=== PATIENT | male | born 1950 | race Caucasian/White ===

== ENCOUNTER → 2024-05-11 09:02 | Outpatient (REF) | payer MEDICARE, SELFPAY | LOC: RCS 09:02 | PROVIDERS: ATTENDING PHYSICIAN Physician Assistant Medical; FAMILY PHYSICIAN Internal Medicine | DX: I10 Essential (primary) hypertension (principal) | CPT/HCPCS: 93306 ==

== ENCOUNTER → 2024-12-24 12:42 | Outpatient (REF) | payer MEDICARE, SELFPAY | LOC: HWRAD 12:42 | PROVIDERS: ATTENDING PHYSICIAN Physician Assistant Medical | DX: R10.9 Unspecified abdominal pain (principal) | CPT/HCPCS: 76770 ==

== ENCOUNTER 2025-09-28 08:39 | Emergency (ER) | payer MEDICARE, SELFPAY ==
[2025-09-28 08:51] VITALS: BP 121/62
--- NOTE | 2025-09-28 09:37 | ED.GENMED ---
History of Present Illness
General
Chief Complaint: Flank Pain
Source: patient
Exam Limitations: none
Time Seen by Provider: 09/28/25 09:20
Nursing documentation reviewed up to this point in time: agreed with
History of Present Illness
History of Present Illness:
Patient is a 75-year-old male with history hypertension, hyperlipidemia, factor V Leiden on Eliquis who presents to the emergency department with right flank pain. Patient states he began with a dull pain in his right back 2 days ago. Since that
time, he has had waves of sharp pain in his right flank radiating into his right abdomen. He also had dark (brown/red) urine on Friday and Friday. He was seen by his primary care provider yesterday where a urinalysis performed in office revealed
hematuria.
He states that flank discomfort became acutely worse yesterday around 6 PM persisting until this morning. He has experienced a few episodes of vomiting. At this time, he states pain has dissipated significantly and is currently at 2/10 in severity.
Patient denies any fever or chills. No dysuria. No chest pain or shortness of breath.
He does have a past history of kidney stones. He follows with Dr. Lea.
Past History
Past History
ED Past Medical History: None
ED Past Surgical History: Orthopedic
Social History
Tobacco: Non-smoker
Alcohol: None
Drug: None
Review of Systems
Review of Systems
Allergies reviewed?: Yes
All Other Systems: ROS reviewed and negative except as documented in HPI and ROS
Phy Exam
Physical Exam
Physical Exam:
Vitals: Patient's vital signs are stable. Afebrile
General: Patient is well appearing, no acute distress
Skin: Warm and dry, no rashes or lesions
Eyes: Sclera nonicteric.
Throat: Protecting airway
Neck: Normal ROM, no cervical spine tenderness, no meningismus
Cardiac: Regular rate and rhythm, no murmurs.
Pulm: Normal respiratory effort, no wheezes, rales, rhonchi heard on exam
Abdomen: Abdomen soft. Very mild tenderness in right mid abdomen. No rebound or guarding. No CVA tenderness. No rash
Extremities: No evidence of cyanosis or edema
Neuro: AAOx3. Grossly intact.
Psychiatric: Normal affect.
Course
Orders/Labs/Results
Orders:
Orders
09/28/25 09:33
Abdomen/Pelvis wo Contrast CT [CT Abd/pelvis Wo Iv Cont] Urgent
Comment:
Reason For Exam: Right flank pain
0.9% Sodium Chloride 1000 ml [Nss] 1,000 ml IV BOLUS
09/28/25 09:39
Complete Blood Count/With Diff Urgent
Comprehensive Metabolic Panel Urgent
Urinalysis Reflex To Culture Urgent
Date Specimen was Collected: 09/28/25
Time Specimen was Collected: 09:38
Urine Microscopic Reflex Cult Urgent
09/28/25 11:02
Potassium Chloride [KCl] 40 meq PO NOW STA
09/28/25 11:10
HYDROmorphone [Dilaudid] 0.5 mg IV NOW STA
09/28/25 11:49
Add On- LAB Urgent
Tests Added?: urine culture
Abnormal Lab Results
09/28/25
09:39
WBC 12.0 H 10^3/uL
(4.8-10.8)
MPV 10.7 H fL
(7.4-10.4)
Abs Immat Gran (auto) 0.1 H 10^3/uL
(0-0.05)
Absolute Neuts (auto) 10.4 H 10^3/uL
(1.4-6.5)
Absolute Lymphs (auto) 0.8 L 10^3/uL
(1.2-3.4)
Absolute Monos (auto) 0.7 H 10^3/uL
(0.1-0.6)
Neutrophils % 87.0 H %
(42.2-75.2)
Lymphocytes % 6.3 L %
(20.5-51.1)
Sodium 134 L mmol/L
(135-145)
Potassium 3.2 L mmol/L
(3.5-5.1)
Chloride 97 L mmol/L
(98-107)
BUN 32 H mg/dl
(9-20)
Creatinine 1.4 H mg/dL
(0.7-1.3)
Glucose 149 H mg/dl
(70-99)
Urine Ketones 2+ A
(Negative)
Ur Occult Blood Reflex 4+ A
(Negative)
Urine RBC 30-40 A /HPF
(0-2)
Urine Bacteria (Reflex) Few A
(Negative)
Urine Glucose 3+ A
(Negative)
Urine Albumin (Reflex) 1+ A
(Neg - Trace)
09/28/25 09:39
09/28/25 09:39
Vital Signs
Initial and Last Documented VS:
Initial Vital Signs
Temp Pulse Resp BP Pulse Ox
98.0 F 74 16 121/62 98
09/28/25 08:51 09/28/25 08:51 09/28/25 08:51 09/28/25 08:51 09/28/25 08:51
Last Documented Vital Signs
Temp Pulse Resp BP Pulse Ox
98.0 F 74 16 121/62 98
09/28/25 08:51 09/28/25 08:51 09/28/25 08:51 09/28/25 08:51 09/28/25 09:37
MDM/Problems Addressed
Differential Diagnosis Includes:
Not limited to: Renal colic, pyelonephritis, cystitis, appendicitis, biliary colic, muscular strain/spasm, etc.
MDM/Problems Addressed:
75-year-old male with 2 days of right flank pain and hematuria. No fevers or dysuria. No chest pain or shortness of breath. History of past kidney stones. Vitals as above. On exam, patient appears no distress. Cardio/pulmonary assessment
unremarkable. Abdomen is soft with very mild tenderness in right mid abdomen. No rebound or guarding. No CVA tenderness. No rash or ecchymoses. Differential as above. Clinical picture most consistent with renal colic. Other differentials
would include cystitis, pyelonephritis, appendicitis, muscular strain. Less likely PE as patient is anticoagulated on Eliquis without any shortness of breath or abnormal vital signs.
ED plan: Labs, urinalysis, noncontrast CT scan abdomen/pelvis. Will give IV fluids and reassess. Patient declines any analgesia at this time.
Update: labs reveal mild leukocytosis - suspect reactive. Chemistry shows mild hypokalemia and FER w/ creatinine of 1.4. UA shows many RBCs without evidence of acute infection. Urine culture sent. CT shows 5mm stone in right mid ureter w/ mild
hydro. Patient has received one dose of IV pain medication and symptoms are improved. Given patient is afebrile without evidence of acute UTI- feel patient is appropriate for trial of stone passage at home. Discussed w/ urology tong carrier who agrees
with plan. Patient was given 1L IVF. Recommended close outpatient f/u with urology next week for repeat labs to ensure kidney function returns to normal. He already has prescription for flomax. Return precautions discussed.
Chronic conditions affecting care:
History of kidney stones
Acute Exacerbation and/or Progression of Chronic Illness:
Right mid ureteal calculus
*Radiology
Radiology exam reviewed: radiology read reviewed
*Pulse Oximetry
SaO2: 98
Oxygen Mode of Delivery: Room air
Patient hypoxic: no
*EKG
Interpreted by ED Provider?: NA
*Change Manager Interpretation
Rate: Change Manager- N/A
*Critical Care Note
Total Time (30-74mins, 75-104mins- exclusive of procedures): Not Applicable
Patient Management
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
ED Attending Note
-
Portions of this chart may have been created with voice recognition software.� Occasional wrong word or��sound alike� substitutions may have occurred due to the inherent limitations of voice recognition software.
Discharge Plan
Departure
Patient Disposition: Home (Routine Discharge)
Date of Disposition: 09/28/25
Time of Disposition: 12:11
Patient with high blood pressure during this ER visit?: Yes
Condition: Good
Discharge Problem:
Right ureteral stone
Instructions: Kidney Stones (DC)
Prescriptions:
New
oxycodone 5 mg tablet
5 mg PO Q8H PRN (Reason: Pain) Qty: 7 0RF
No Action
apixaban [Eliquis] 5 MG tablet
5 mg PO BID Qty: 60 0RF
Referrals:
Keith Tello MD [Family Provider, Internal Medicine]
Bruno Lea MD [Active, Urology] - Follow up in 1 week
Activity Restrictions/Additional Instructions:
RETURN TO THE EMERGENCY DEPARTMENT WITH ANY FEVER, CHILLS, SEVERE ABDOMINAL OR BACK PAIN, INABILITY TO URINATE, WORSENING IN CURRENT SYMPTOMS, OR ANY OTHER CONCERNS
- As discussed�your CT scan did reveal a 5 mm stone in your mid right ureter. This is likely the cause of your symptoms. You were also noted to have a suspected cyst on the right kidney�you should have an outpatient kidney ultrasound performed for
better evaluation of this.
- To treat pain, a prescription for oxycodone has been sent to your pharmacy. This may cause drowsiness and you should not take prior to driving. You can also take Tylenol as needed. You should avoid any NSAIDs as you are on Eliquis. Continue to
stay very well-hydrated. Take Flomax daily as prescribed by your primary care.
- Your kidney function was slightly elevated today in the emergency department. Please have this repeated in 1 week to ensure trending down. Your potassium level was also low�you were given a dose of oral potassium.
- Follow-up with urology next week for further evaluation and management.
Monitor your symptoms closely and return to the emergency department with any acute worsening/new symptoms or any signs of infection.
Interventions
Interventions:
*Risk Screen - Suicide Last Done: 09/28/25 08:51
*General Assessment Last Done: 09/28/25 08:51
*Neglect/Abuse Screening Last Done: 09/28/25 08:51
*ED- Fall Risk Assessment Last Done: 09/28/25 12:18
*ED COVID-19 Vaccine History Last Done: 09/28/25 12:18
*ED Influenza Vaccine History Last Done: 09/28/25 12:18
*Nursing Disposition Last Done: 09/28/25 12:18
AH-Kzywnd-Qziszdhtrk Assessment Last Done: 09/28/25 12:17
ED-Male Genitourinary Assessment Last Done: 09/28/25 12:17
Discharge Date and Time
Discharge Date/Time: 09/28/25 12:18
Print Language: SLOVENIAN
[2025-09-28 09:46] LABS: Hematocrit 40.8 % (39.0-52.0); Hemoglobin 14.1 g/dL (13.0-18.0); Mean Corp Hgb Conc. 34.6 g/dL (33.0-37.0); Mean Corpuscular Volume 86.3 fL (80.0-94.0); Nucleated Red Blood Cells % 0 % (-); Platelet Count 189 10^3/uL (130-400); Red Cell Dist. Width 13.2 % (11.5-14.5)
[2025-09-28 09:59] LABS: ALT (SGPT) 29 U/L (0-50); AST (SGOT) 26 U/L (17-59); Albumin 4.5 g/dl (3.5-5.0); Alkaline Phosphatase 47 U/L (38-126); Blood Urea Nitrogen 32 mg/dl (9-20); Calcium 9.1 mg/dl (8.4-10.2); Carbon Dioxide 30 mmol/L (22-30); Chloride 97 mmol/L (98-107); Glucose 149 mg/dl (70-99); Potassium 3.2 mmol/L (3.5-5.1); Sodium 134 mmol/L (135-145); Total Protein 7.4 g/dl (6.3-8.2); eGFR 53.07
[2025-09-28 10:01] LABS: Urine Character Clear (Clear)
[2025-09-28] MEDS: NSS 1000 IV (10:02)
[2025-09-28 10:34] LABS: Urine Squamous Cell 0-2 /LPF (Few)
[2025-09-28 10:35] LABS: Urine Red Blood Cell 30-40 /HPF (0-2)
[2025-09-28] MEDS: DILAUDID 0.5 MG IV (11:17)
[2025-09-28] MEDS: KCL 40 MEQ PO (11:19)
== END 2025-09-28 12:18 | disposition home or self-care (01) ==
LOC: EMR 08:39
PROVIDERS: Physician Assistant; EMERGENCY PHYSICIAN Emergency Medicine; FAMILY PHYSICIAN Internal Medicine
DX: N13.2 Hydronephrosis with renal and ureteral calculous obstruction (principal); E87.6 Hypokalemia; N17.9 Acute kidney failure, unspecified; E78.5 Hyperlipidemia, unspecified; I10 Essential (primary) hypertension; D68.51 Activated protein C resistance; Z79.01 Long term (current) use of anticoagulants
CPT/HCPCS: 96374; 96361; 99284; 74176; 80053; 81003; 81015; 85025

== ENCOUNTER 2025-10-13 06:31 | Day surgery (SDC) | payer MEDICARE, SELFPAY ==
--- NOTE | 2025-10-10 15:31 | PTCARENOTE ---
Maggi Uribe notified of patients 09/28 Potassium- 3.2; Creat-1.4; GFR- 53.07
--- NOTE | 2025-10-12 15:27 | PTCARENOTE ---
Patients 09/28 potassium 3.2- Dr. Barreto notified- no additional interventions indicated
[2025-10-13] VITALS (9 sets, daily range): BP systolic 138–182; BP diastolic 68–98; BMI 26.6; BMI 26.1
[2025-10-13] MEDS: NORMOSOL-R/PLASMALYTE-A 1000 IV (12:50)
[2025-10-13] MEDS: LR 1000 IV (20:26)
[2025-10-13] MEDS: FLOMAX 0.4 MG PO (20:26)
[2025-10-13] MEDS: TRANEXAMIC ACID 110 MG IV (20:36)
[2025-10-13] MEDS: TYLENOL 650 MG PO (20:39)
[2025-10-13] MEDS: XALATAN OPHTHALMIC SOLUTION 1 DROP RIGHT EYE (20:53)
[2025-10-13] MEDS: SENOKOT-S 1 TABLET PO (23:23)
[2025-10-14 02:48] VITALS: BP 128/73
[2025-10-14] MEDS: LR 1000 IV ×2 (05:50→14:08)
[2025-10-14 07:35] VITALS: BP 84/46
[2025-10-14] MEDS: SENOKOT-S 1 TABLET PO (07:55)
[2025-10-14] MEDS: TYLENOL 650 MG PO (07:55)
--- NOTE | 2025-10-14 08:45 | CM ---
comp field case manager reviewed patient's chart and met with patient and patient lives with his spouse in a one story home, 2 steps to enter, patient is independent with adl's and ambulation, no dme, patient drives, home no needs when stable.
PCP: Dr Keith Tello
Pharmacy: [facility] in [place]
Plan; Home no needs when stable.
--- NOTE | 2025-10-14 09:11 | W.PN.URO.CBU ---
Today's Communication / Plan
-
Void trial, PVR
Ambulation
Continue flomax
Pain control PRN
Holding eliquis - plan to resume eliquis 10/15 or 10/16 pending urine color
Possible dc today
Assessment / Plan
-
75M with R obstructing ureteral stone s/p R RGP/stent 10/13/25, post-op with gross hematuria and urinary retention requiring villarreal placement.
Villarreal irrigated today with 240 mL sterile saline and urine clears instantly, no clots. 10cc deflated from villarreal balloon and villarreal removed
Diagnosis
-
Date of Service: October 14, 2025
-
Patient Diagnosis: gross hematuria
Post Op Day: POD#1
Subjective
-
Doing well this morning. No overnight issues. Villarreal getting clearer, no issues with drainage
Ambulating, UOP adequate
Objective
-
Vital Signs
Temp Pulse Resp BP Pulse Ox
98.8 F 64 16 84/46 93
10/14/25 07:35 10/14/25 07:35 10/14/25 07:35 10/14/25 07:35 10/14/25 07:35
Intake and Output
10/13/25 10/14/25 10/15/25
06:59 06:59 06:59
Intake Total 100 / 100
Output Total 2129
Balance -2029 /
Intake:
IV fluids (Total) 100 / 100
normosol 100 / 100
Output:
Urine, Villarreal 2129
Physical Exam
-
General - well developed, well nourished, no acute distress
Chest - clear bilaterally
Abdomen - soft, non-tender, positive bowel sounds, no CVAT, no incisional pain or distention
Genitalia - normal, villarreal light orange-red see through
[2025-10-14 10:44] VITALS: BP 123/70
[2025-10-14] MEDS: FLOMAX 0.4 MG PO ×2 (12:14→21:05)
[2025-10-14] MEDS: MILK OF MAGNESIA 30 ML PO (15:25)
[2025-10-14 15:36] VITALS: BP 141/71
[2025-10-14] MEDS: SENOKOT-S PO (20:46)
[2025-10-14 20:55] VITALS: BP 160/91
[2025-10-14] MEDS: XALATAN OPHTHALMIC SOLUTION RIGHT EYE (21:02)
[2025-10-14] MEDS: TORADOL 15 MG IV (21:04)
[2025-10-14] MEDS: BENTYL 20 MG PO (21:05)
[2025-10-14 22:32] VITALS: BP 117/79
[2025-10-14] MEDS: VALIUM 2 MG PO (22:47)
[2025-10-15] MEDS: LR 1000 IV ×3 (00:32→16:20)
[2025-10-15] MEDS: MYLICON 80 MG PO (00:34)
[2025-10-15] MEDS: DILAUDID 0.25 MG IV (01:38)
[2025-10-15 02:20] VITALS: BP 142/67
--- NOTE | 2025-10-15 03:44 | PTCARENOTE ---
At 2100 RN found pt on toilet and pt was writhing, and shaking in pain. Stating 'he needs to urinate/have a bowel movement but nothing was happening'. He described the pain as 10/10 severe cramps that waxed & weened. TT ELIZABETH Oneal and came to
bedside. PO bentyl and IV toradol were ordered and administered at 2105, bp 160/91, pr 90. Bladder scan was 255cc at 2130.
When doing 1 hour pain reassessment, pt stated that the spasms were still 10/10 but not lasting as long. TT Racheal. PO valium was ordered and administered at 2247. Pt still having extreme discomfort and no relief.
Simethicone was ordered and administered at 0034. Bladder scans were >300cc x3. Pt attemped to ambulate in hallway. Pt urinating small amounts when having a spasm.
ELIZABETH Springer to bedside. Dilaudid given x1 at 0138. A 20fr coude was ordered d/t acute retention and placed at 0200. Pt with 400cc of concentrated urine immediate output. Pt more comfortable and able to fall asleep, endorces 0/10 pain. Care ongoing.
[2025-10-15 07:00] VITALS: BP 112/68
[2025-10-15] MEDS: SENOKOT-S 1 TABLET PO ×2 (08:10→20:24)
[2025-10-15] MEDS: TYLENOL 650 MG PO ×2 (08:10→18:16)
--- NOTE | 2025-10-15 08:51 | W.PN.URO.CBU ---
Today's Communication / Plan
-
Cont villarreal, flomax
Tx constipation > will order miralax or enema
Possible VT tomorrow
Assessment / Plan
-
75M with R obstructing ureteral stone s/p R RGP/stent 10/13/25, post-op with gross hematuria and urinary retention requiring villarreal placement.
Failed void trial yesterday with discomfort and 400 cc of urine requiring villarreal replacement overnight.
Pt more comfortable this morning.
Plan:
- Continue regular diet, hydration
- Ambulate
- Continue flomax
- Miralax for constipation > pt has not had BM despite senna and MOM
- Possible void trial tomorrow
Diagnosis
-
Date of Service: October 15, 2025
-
Patient Diagnosis:
Post Op Day:
Patient Diagnosis: gross hematuria
Post Op Day: POD#1
Subjective
-
Overnight, pt with severe bladder spasms and retaining > 300 mL urine
Pt/nursing decided for villarreal placement > with return of yellow urine 400 cc.
Feeling better this morning. Pt does not want to go home with villarreal
Objective
-
Vital Signs
Temp Pulse Resp BP Pulse Ox
97.9 F 78 16 112/68 98
10/15/25 07:00 10/15/25 07:00 10/15/25 07:00 10/15/25 07:00 10/15/25 07:00
Intake and Output
10/14/25 10/15/25 10/16/25
06:59 06:59 06:59
Intake Total 100 / 100 4865 / 4865
Output Total 2129 / 2129 2965 / 2965
Balance -2029 / -2029 190 / 190
Intake:
Oral fluids 2129
IV fluids (Total) 100 / 100 2734
normosol 100 / 100
Output:
Urine, Villarreal 2129
Urine, Voided
Physical Exam
-
General - well developed, well nourished, no acute distress
Chest - clear bilaterally
Abdomen - soft, non-tender, positive bowel sounds, no CVAT, no incisional pain or distention
Genitalia - villarreal orange to light red-see thorgh
[2025-10-15] MEDS: MIRALAX 17 GRAMS PO (09:18)
[2025-10-15 15:00] VITALS: BP 122/69
[2025-10-15] MEDS: XALATAN OPHTHALMIC SOLUTION RIGHT EYE ×2 (22:59→23:03)
[2025-10-15] MEDS: FLOMAX 0.4 MG PO (22:59)
[2025-10-15 23:51] VITALS: BP 134/70
[2025-10-16] MEDS: LR 1000 IV (00:47)
[2025-10-16] MEDS: MILK OF MAGNESIA 30 ML PO (05:55)
[2025-10-16] MEDS: TYLENOL 650 MG PO (05:57)
[2025-10-16 07:00] VITALS: BP 106/78
[2025-10-16] MEDS: MIRALAX PO (08:32)
[2025-10-16] MEDS: SENOKOT-S 1 TABLET PO (08:32)
[2025-10-16] MEDS: LR IV (09:08)
--- NOTE | 2025-10-16 10:15 | W.PN.URO.CBU ---
Today's Communication / Plan
-
Void trial > measure PVRs
Anticipate discharge home today
Bowel regimen, ambulation, hydration. Pt refused enema for now
Assessment / Plan
-
75M with R obstructing ureteral stone s/p R RGP/stent 10/13/25, post-op with gross hematuria and urinary retention requiring villarreal placement.
Failed void trial 10/14 PM evening with discomfort and 400 cc of urine requiring villarreal replacement.
Plan:
- I removed villarreal this morning > void trial/PVRs
- Continue regular diet, hydration
- Ambulate
- Continue flomax
- Miralax for constipation > pt has not had BM despite senna and MOM > we discussed possible enemas but he refused. Informed him that constipation can impair bladder emptying
Diagnosis
-
Date of Service: October 16, 2025
-
Patient Diagnosis:
Post Op Day:
Patient Diagnosis:
Post Op Day:
Patient Diagnosis: gross hematuria
Post Op Day: POD#1
Subjective
-
No overnight issues. No bladder spasms. Pain controlled. Villarreal draining yellow urine.
Objective
-
Vital Signs
Temp Pulse Resp BP Pulse Ox
98.4 F 77 16 106/78 96
10/16/25 07:00 10/16/25 07:00 10/16/25 07:00 10/16/25 07:00 10/16/25 07:00
Intake and Output
10/15/25 10/16/25 10/17/25
06:59 06:59 06:59
Intake Total 4865 / 4865 2700 / 2700
Output Total 2965 / 2965 4425 / 4425
Balance 1900 / 1900 -1725 / -1725
Intake:
Oral fluids 2130 / 2130 1260 / 1260
IV fluids (Total) 2735 / 2735 1440 / 1440
Output:
Urine, Villarreal 2250 / 0 4425 / 4425
Urine, Voided 715 / 715
Physical Exam
-
General - well developed, well nourished, no acute distress
Chest - clear bilaterally
Abdomen - soft, non-tender, positive bowel sounds, no CVAT, no incisional pain or distention
Genitalia - normal, villarreal yellow
[2025-10-16 15:00] VITALS: BP 123/58
== END 2025-10-16 16:30 | disposition home or self-care (01) ==
LOC: SDS 06:31
PROVIDERS: ATTENDING PHYSICIAN Student in an Organized Health Care Education/Training Program
DX: N20.1 Calculus of ureter (principal); N13.5 Crossing vessel and stricture of ureter without hydronephrosis
CPT/HCPCS: 52332; 74018; 76000; 93005